=== PATIENT | female | born 1995 | race Caucasian/White ===

== ENCOUNTER 2024-01-06 03:18 | Emergency (ER) | payer OTHER, SELFPAY ==
[2024-01-06 03:20] VITALS: BP 140/105
[2024-01-06 03:36] VITALS: BMI 24.2
--- NOTE | 2024-01-06 03:40 | EDRN ---
Pt says RLQ abd pain started day before yesterday. Middle of yesterday pain was 8/10 and improved. Pain is always present to some degree. At 0215 pain was 10/10 and woke pt. Pt went to bathroom and says she was hunched over, urinated a little
bit which made pain worse. Pt went back to bed to reposition herself to relieve pain which did not help. 911 called because pt was rolling around in pain. Pain lasted at 10/10 for 10-15 minutes. Pt gave 5 months ago and says the pain was
'worse than a high contraction pain.' Pt declined ambulance transport to hospital because pain lessened and had her parents drive her to [facility]. Nausea, no vomiting. No fever/chills, cough, cp, sob, urinary symptoms, constipation. Pt has had
diarrhea every day for past month because she has been drinking laxative teas. Pt says this is a weight loss tea that she drinks daily to lose baby weight.
[2024-01-06 03:59] LABS: % Basophils 0.4 % (0-2); % Eosinophils 3.2 % (0-6); % Immature Granulocytes 0.4 % (0-0.5); % Lymphocytes 36.8 % (20.5-51.1); % Monocytes 8.6 % (1.7-9.3); % Neutrophils 50.6 % (42.2-75.2); Absolute Eosinophils 0.2 10^3/uL (0-0.7); Absolute Monocytes 0.5 10^3/uL (0.1-0.6); Absolute Neutrophils 2.7 10^3/uL (1.4-6.5); Hematocrit 33.8 % (37.0-47.0); Mean Corp Hgb Conc. 35.5 g/dL (33.0-37.0); Mean Corpuscular Hgb 30.9 pg (27.0-31.0); Mean Corpuscular Volume 87.1 fL (81.0-99.0); Mean Platelet Volume 9.5 fL (7.4-10.4); Nucleated Red Blood Cells % 0 %; Platelet Count 212 10^3/uL (130-400); Red Blood Cell Count 3.88 10^6/uL (4.20-5.40); Red Cell Dist. Width 12.8 % (11.5-14.5); White Blood Cell Count 5.3 10^3/uL (4.8-10.8)
[2024-01-06 04:00] LABS: Urine Albumin Negative (Neg - Trace); Urine Bilirubin 1+ (Negative); Urine Character Clear (Clear); Urine Color Yellow; Urine Glucose Negative (Negative); Urine Ketone 1+ (Negative); Urine Leukocyte Trace (Negative); Urine Nitrite Negative (Negative); Urine Occult Blood 4+ (Negative); Urine Specific Gravity 1.025 (<1.030); Urine Urobilinogen Negative (Neg - 1+)
--- NOTE | 2024-01-06 04:05 | ED.GENMED ---
History of Present Illness
<JOANIE Allison - Last Filed: 01/06/24 06:25>
General
Chief Complaint: Abdominal Pain
Source: patient
Exam Limitations: none
Time Seen by Provider: 01/06/24 03:51
Nursing documentation reviewed up to this point in time: agreed with
Travel History
Have you had any contact with someone who has COVID-19?: No
Do you have any symptoms of coronavirus? Fever > 100 degrees, chills, cough, shortness of breath, sore throat, loss of taste or smell, muscle aches, or headache?: No
History of Present Illness
History of Present Illness:
patient is a 28 y/o female presenting with abdominal pain x 2 days. patient states the pain woke her up at 2:15 today and was sharp in nature. Patient states the pain was right sided and comes in waves. Patient states the pain was a 10/10 with no
radiation. Patient admits to nausea with no vomiting episodes. Patient admits to diarrhea x 1 month. Patient states that she has been using laxatives daily for the last month. patient states she drinks a laxative tea. Patient admits that she has
done this in the past to lose weight but never had symptoms like this. Patient denies V/C, ORDONEZ, CP, SOB, fever, chills, dysuria. vaginal bleeding. Patient denies any previous episodes in the past. Patient denies any medication changes or recent
illnesses. Patient admits to a poor diet with meal replacement shakes and increased water intake. Patient states she is 5 months and is not breast feeding. Patient states she had a vaginal delivery with no complications. Patient admits
that she has had menses since labor but it has been irregular.
Review of Systems
<JOANIE Allison - Last Filed: 01/06/24 06:25>
Review of Systems
Constitutional: Reports no symptoms
EENT: Reports no symptoms
Respiratory: Reports no symptoms
Cardiac: Reports no symptoms
ABD/GI: Reports abdominal pain (RLQ), nausea and anorexia
: Reports no symptoms
Musculoskeletal: Reports no symptoms
Skin: Reports no symptoms
Neurological: Reports no symptoms
Phy Exam
<JOANIE Allison - Last Filed: 01/06/24 06:25>
General Physical Exam
General Presentation: well appearing and no apparent distress
General Skin: warm and dry
General Habitus: normal
General Mental: alert
General Hydration: appears well hydrated
ENT Exam
ENT Exam: EOMI, pharynx normal, neck supple and normocephalic
Eye Exam
Eye Exam: PERRL, cornea clear and conjunctiva normal
Cardiovascular Exam
Cardiovascular Exam: regular rate/rhythm, no edema, no murmur and normal peripheral pulses
Pulmonary Exam
Pulmonary Exam: lungs clear, no respiratory distress, no rales, no crackles, no rhonchi, no stridor, no wheezing and no cough
Gastrointestinal Exam
Gastrointestinal Exam: normal bowel sounds and tender (tender with deep palpation to RLQ )
Neurological Exam
Neurological Exam: alert, oriented x3, no motor deficits and speech normal
Musculoskeletal Exam
Musculoskeletal Exam: full ROM and no edema
Skin Exam
Skin Exam: normal color, warm/dry, no rash and no petechia
Psychiatric Exam
Psychiatric Exam: normal mood/affect
Course
<JOANIE Allison - Last Filed: 01/06/24 06:25>
Orders/Labs/Results
Orders:
Orders
01/06/24 03:34
IV Insert/Care/Rem.- Treatment PRN
Test Result ONCE
01/06/24 03:49
Complete Blood Count/With Diff Urgent
Comprehensive Metabolic Panel Urgent
HCG, Serum Qualitative Screen Urgent
Lipase Urgent
01/06/24 03:52
Urinalysis Reflex To Culture Urgent
Date Specimen was Collected: 01/06/24
Time Specimen was Collected: 03:51
Urine Microscopic Reflex Cult Urgent
Urine Culture Urgent
IWLLY Source: U
Specimen Description:
Date Specimen was Collected: 01/06/24
Time Specimen was Collected: 03:51
01/06/24 04:31
CT Abd/pelvis W Iv Cont Urgent
Comment:
Reason For Exam: rlq abd pain
Abnormal Lab Results
01/06/24 01/06/24
03:49 03:52
RBC 3.88 L 10^6/uL
(4.20-5.40)
Hct 33.8 L %
(37.0-47.0)
Chloride 108 H mmol/L
(98-107)
Carbon Dioxide 18 L mmol/L
(22-30)
BUN 20 H mg/dl
(7-17)
Total Bilirubin 2.3 H mg/dl
(0.2-1.3)
Urine Ketones 1+ A
(Negative)
Ur Occult Blood Reflex 4+ A
(Negative)
Urine Bilirubin 1+ A
(Negative)
Leukocyte Esterase Rfl Trace A
(Negative)
Urine RBC >100 A /HPF
(0-2)
Urine Bacteria (Reflex) Many A
(Negative)
01/06/24 03:49
01/06/24 03:49
Vital Signs
Initial and Last Documented VS:
Initial Vital Signs
Temp Pulse Resp BP Pulse Ox
98.6 F 84 22 140/105 100
01/06/24 03:20 01/06/24 03:20 01/06/24 03:20 01/06/24 03:20 01/06/24 03:20
Last Documented Vital Signs
Temp Pulse Resp BP Pulse Ox
98.6 F 76 16 113/76 98
01/06/24 03:20 01/06/24 04:58 01/06/24 04:58 01/06/24 04:58 01/06/24 04:58
<Andrew Iniguez, - Last Filed: 01/06/24 06:36>
Orders/Labs/Results
Orders:
Orders
01/06/24 03:34
IV Insert/Care/Rem.- Treatment PRN
Test Result ONCE
01/06/24 03:49
Complete Blood Count/With Diff Urgent
Comprehensive Metabolic Panel Urgent
HCG, Serum Qualitative Screen Urgent
Lipase Urgent
01/06/24 03:52
Urinalysis Reflex To Culture Urgent
Date Specimen was Collected: 01/06/24
Time Specimen was Collected: 03:51
Urine Microscopic Reflex Cult Urgent
Urine Culture Urgent
WILLY Source: U
Specimen Description:
Date Specimen was Collected: 01/06/24
Time Specimen was Collected: 03:51
01/06/24 04:31
CT Abd/pelvis W Iv Cont Urgent
Comment:
Reason For Exam: rlq abd pain
Abnormal Lab Results
01/06/24 01/06/24
03:49 03:52
RBC 3.88 L 10^6/uL
(4.20-5.40)
Hct 33.8 L %
(37.0-47.0)
Chloride 108 H mmol/L
(98-107)
Carbon Dioxide 18 L mmol/L
(22-30)
BUN 20 H mg/dl
(7-17)
Total Bilirubin 2.3 H mg/dl
(0.2-1.3)
Urine Ketones 1+ A
(Negative)
Ur Occult Blood Reflex 4+ A
(Negative)
Urine Bilirubin 1+ A
(Negative)
Leukocyte Esterase Rfl Trace A
(Negative)
Urine RBC >100 A /HPF
(0-2)
Urine Bacteria (Reflex) Many A
(Negative)
01/06/24 03:49
01/06/24 03:49
Vital Signs
Initial and Last Documented VS:
Initial Vital Signs
Temp Pulse Resp BP Pulse Ox
98.6 F 84 22 140/105 100
01/06/24 03:20 01/06/24 03:20 01/06/24 03:20 01/06/24 03:20 01/06/24 03:20
Last Documented Vital Signs
Temp Pulse Resp BP Pulse Ox
98.6 F 76 16 113/76 98
01/06/24 03:20 01/06/24 04:58 01/06/24 04:58 01/06/24 04:58 01/06/24 04:58
<JOANIE Allison - Last Filed: 01/06/24 06:25>
MDM/Problems Addressed
Differential Diagnosis Includes:
cathartic cholitis
nephrolithiasis
appendicitis
MDM/Problems Addressed:
abdominal pain
<JOANIE Allison - Last Filed: 01/06/24 06:25>
*Critical Care Note
Total Time (30-74mins, 75-104mins- exclusive of procedures): Not Applicable
ED Attending Note
<JOANIE Allison - Last Filed: 01/06/24 06:25>
-
Portions of this chart may have been created with voice recognition software.� Occasional wrong word or��sound alike� substitutions may have occurred due to the inherent limitations of voice recognition software.
<Andrew Iniguez DO - Last Filed: 01/06/24 06:36>
ED Attending Note
Patient seen and examined by attending physician: Yes
I performed the substantive portion of visit, reviewed & personally made and approve the management plan that is documented in note by myself or MAR.: Yes
ED Attending Note:
28-year-old female presents with abdominal pain on the right-hand side that began 2 days ago. She states that she awakened at 215 this morning with sharp right-sided abdominal pain. She reports that it comes in waves. At its worst she does feel
nauseated. She denies any vomiting. Reports no fever or chills. Patient has been on diet laxative teas for the last month. She has had watery, nonbloody diarrhea during this timeframe. She has been drinking meal replacement shakes and limited
regular food. She does have increased water intake. Patient was seen in conjunction with the PA student. I have reviewed and agree with the history and treatment plan presented. On my independent physical exam, patient is awake, alert, and
oriented x3. No CVA tenderness.
Urine shows blood with a contaminated sample.
Discharge Plan
Departure
Patient Disposition: Home (Routine Discharge)
Date of Disposition: 01/06/24
Time of Disposition: 06:32
Patient with high blood pressure during this ER visit?: No
Condition: Fair
Covid-19: Not Applicable
Discharge Problem:
Nephrolithiasis
Instructions: Kidney stones in adults, BLOOD PRESSURE
Prescriptions:
New
tamsulosin [Flomax] 0.4 mg capsule
0.4 mg PO DAILY Qty: 7 0RF
diclofenac sodium 75 mg tablet,delayed release (DR/EC)
75 mg PO BID Qty: 10 0RF
No Action
Control Pill
1 tab PO DAILY
Patient Comments:
pt cannot remember name of pill
Referrals:
NONE,* [Family Provider] -
Francisco Javier Hong MD [Active] -
Activity Restrictions/Additional Instructions:
It was a pleasure meeting you and taking part in your care. We hope for your continued healing and wellness.
Please read discharge instructions in their entirety. However, they are for general education and may not describe your exact diagnosis at discharge. Information on your ER visit and medical conditions were discussed with you along with appropriate
follow up information...
If indicated, please take your medications as instructed and indicated on discharge paperwork.
Please schedule a follow up appointment as directed. Call to schedule an appointment
Please return to the emergency department with ANY change in, persisting, or worsening of symptoms. If any of your symptoms do not improve, or persist, or become more severe within 6-12 hours, please return to the emergency department for further
care.
Please return to the emergency department if you develop a headache, neck pain/stiffness, fever greater than 100.4F, chest pain, shortness of breath, persistent nausea, vomiting, slurred speech, difficulty walking, numbness/tingling, weakness, signs
of infection or any other symptoms that are worrisome to you.
If you have any questions or concerns please do not hesitate to call the Hospital at or E-mail me directly at [email or web address]
Interventions
Interventions:
*Risk Screen - Suicide Last Done: 01/06/24 03:20
*General Assessment Last Done: 01/06/24 03:36
*Neglect/Abuse Screening Last Done: 01/06/24 03:20
*ED COVID-19 Vaccine History Last Done: 01/06/24 03:36
QA-Xcasdp-Nnbmitgqce Assessment Last Done: 01/06/24 03:55
Discharge Date and Time
Print Language: [place]
[2024-01-06 04:07] LABS: Urine Mucus Many; Urine Squamous Cell >30 /LPF (Few)
[2024-01-06 04:08] LABS: Urine Bacteria Many (Negative); Urine Red Blood Cell >100 /HPF (0-2)
[2024-01-06 04:16] LABS: HCG, Serum Qualitative Screen Negative
[2024-01-06 04:19] LABS: ALT (SGPT) 29 U/L (0-35); AST (SGOT) 31 U/L (14-36); Albumin 4.3 g/dl (3.5-5.0); Alkaline Phosphatase 87 U/L (38-126); Blood Urea Nitrogen 20 mg/dl (7-17); Calcium 9.2 mg/dl (8.4-10.2); Carbon Dioxide 18 mmol/L (22-30); Chloride 108 mmol/L (98-107); Estimated Creatinine Clearance 94 ml/min; Glucose 88 mg/dl (70-99); Lipase 90 U/L (23-300); Potassium 3.8 mmol/L (3.5-5.1); Sodium 135 mmol/L (135-145); Total Bilirubin 2.3 mg/dl (0.2-1.3); Total Protein 6.3 g/dl (6.3-8.2); eGFR > 60.00
[2024-01-06 04:58] VITALS: BP 113/76
== END 2024-01-06 06:45 | disposition home or self-care (01) ==
LOC: EMR 03:18
PROVIDERS: EMERGENCY PHYSICIAN Student in an Organized Health Care Education/Training Program
DX: N20.0 Calculus of kidney (principal)
CPT/HCPCS: 99284; 74177; 80053; 81003; 81015; 83690; 84703; 85025; 87086; Q9967